=== PATIENT | female | born 2000 | race Caucasian/White ===

== ENCOUNTER 2020-01-15 21:44 | Emergency (ER) | payer OTHER ==
[~2020-01-15] VITALS: Ht 167.6 cm; Wt 135.8 kg
[2020-01-15 22:05] VITALS: BP 123/69; Ht 167.6 cm; Wt 135.8 kg
== END 2020-01-15 23:12 | disposition home or self-care (01) ==
LOC: ED 21:44
DX: H92.01 Otalgia, right ear (principal)

== ENCOUNTER 2020-06-24 01:56 | Emergency (ER) | payer OTHER ==
[~2020-06-24] VITALS: Ht 167.6 cm; Wt 145.3 kg
[2020-06-24 02:06] VITALS: Ht 167.6 cm; Wt 145.3 kg
[2020-06-24 04:36] VITALS: BP 116/66
== END 2020-06-24 04:36 | disposition home or self-care (01) ==
LOC: ED 01:56
DX: S91.311A Laceration without foreign body, right foot, initial encounter (principal); W22.8XXA Striking against or struck by other objects, initial encounter; Y93.89 Activity, other specified; Y92.89 Other specified places as the place of occurrence of the external cause; Y99.8 Other external cause status
CPT/HCPCS: 90715; Q0092